=== PATIENT | male | born 1995 | race African-American/Black ===

== ENCOUNTER 2020-01-12 02:02 | Emergency (ER) | payer SELFPAY ==
[~2020-01-12] VITALS: Ht 167.6 cm; Wt 61.0 kg
[2020-01-12 02:50] VITALS: BP 140/85
== END 2020-01-12 02:51 | disposition left against medical advice (07) ==
LOC: ER 02:02
DX: M79.651 Pain in right thigh (principal); M79.652 Pain in left thigh; Z53.21 Procedure and treatment not carried out due to patient leaving prior to being seen by health care provider